=== PATIENT | female | born 1980 | race Caucasian/White ===

== ENCOUNTER 2020-11-11 20:30 | Emergency (ER) | payer BC, MEDICAID ==
[~2020-11-11] VITALS: Ht 152.4 cm; Wt 63.5 kg
[2020-11-11 20:35] VITALS: BP 120/72
--- NOTE | 2020-11-11 20:38 | NUR ---
TO LOBBY A/W BED AMBULATORY
--- NOTE | 2020-11-11 21:30 | NUR ---
SEEN AND EXAMINED BY RUSSELLD, WITH ORDERS
[2020-11-11 22:20] LABS: BASOPHILS % (AUTO) 0.5 % (0.0-2.0); EOSINOPHILS # (AUTO) 0.1 K/uL (0-0.4); EOSINOPHILS % (AUTO) 1.7 % (0.0-4.0); HEMATOCRIT 37.6 % (36-48); HEMOGLOBIN 12.8 g/dL (12.0-16.0); LYMPHOCYTES # (AUTO) 2.1 K/uL (2.5-16.5); MEAN CORPUSCULAR HEMOGLOBIN 29 pg (27-31); MEAN CORPUSCULAR HGB CONC 34 g/dL (33-37); MEAN CORPUSCULAR VOLUME 84.9 fL (80-94); MONOCYTES # (AUTO) 0.8 K/uL (0.8-1.0); MONOCYTES % (AUTO) 9.7 % (1.7-9.3); NEUTROPHILS # (AUTO) 5.2 K/uL (1.8-7.7); NEUTROPHILS % (AUTO) 63.1 % (42.2-75.2); PLATELET COUNT (AUTO) 250 K/uL (140-450); RED BLOOD CELL COUNT(AUTO) 4.44 MIL/uL (4.20-5.40); RED CELL DISTRIBUTION WIDTH 12.8 % (11.6-13.7); WHITE BLOOD COUNT (AUTO) 8.2 K/uL (4.8-10.8)
[2020-11-11 22:21] LABS: APPEARANCE,URINE CLEAR (CLEAR); BILIRUBIN,URINE NEGATIVE (NEGATIVE); BLOOD, URINE 2+ (NEGATIVE); COLOR,URINE YELLOW (YELLOW); LEUKOCYTE ESTERASE ,URINE NEGATIVE (NEGATIVE); NITRITE, URINE NEGATIVE (NEGATIVE); UGLUCOSE NEGATIVE (NEGATIVE)
[2020-11-11 22:38] LABS: ALBUMIN 4.1 g/dL (3.4-5.0); ANION GAP 10.4 (8-16); CARBON DIOXIDE 30.3 mmol/L (21-32); CREATININE 0.5 mg/dL (0.6-1.3); POTASSIUM 3.7 mmol/L (3.5-5.1); TOTAL BILIRUBIN 0.5 mg/dL (0.0-1.0)
[2020-11-11 23:13] LABS: RBC,URINE 0-5 /HPF (0-5); WBC,URINE 0-5 /HPF (0-5)
[2020-11-12 03:30] VITALS: BP 120/72
--- NOTE | 2020-11-12 03:30 | NUR ---
Patient discharged with v/s stable. Written and verbal after care instructions given and explained. Patient alert, oriented and verbalized understanding of instructions. Ambulatory with steady gait. All questions addressed prior to discharge. ID band removed. Patient advised to follow up with PMD. Rx of BENTYL given. Patient educated on indication of medication including possible reaction and side effects. Opportunity to ask questions provided and answered.
== END 2020-11-12 03:30 | disposition home or self-care (01) ==
LOC: MED 20:30
DX: K80.81 Other cholelithiasis with obstruction (principal); Z88.0 Allergy status to penicillin
CPT/HCPCS: 36415; 76705; 80053; 81001; 82150; 83690; 84703; 85025; 99284